=== PATIENT | female | born 1975 | race American Indian/Alaskan Native ===

== ENCOUNTER 2018-08-22 15:15 | Emergency (ER) | payer OTHER, MEDICAID ==
[2018-08-22 15:35] VITALS: BP 149/87
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
== END 2018-08-22 18:11 | disposition home or self-care (01) ==
LOC: ED 15:15
DX: Z04.1 Encounter for examination and observation following transport accident (principal); V89.2XXA Person injured in unspecified motor-vehicle accident, traffic, initial encounter; Y93.89 Activity, other specified; Y92.488 Other paved roadways as the place of occurrence of the external cause; Y99.8 Other external cause status
CPT/HCPCS: 99282

== ENCOUNTER 2019-02-07 09:52 | Day surgery (SDC) | payer MEDICAID, OTHER ==
[~2019-02-07 09:52] MED LIST: NACL 0.9% 1000 ML 1,000 ML IV SCH
[2019-02-07] MEDS ORDERED: DIPRIVAN 10 MG/ML IV ONE (11:01)
--- NOTE | 2019-02-07 11:11 | Anesthesia Consultation ---
Anesthesia Consult and Med Hx Date of service: 02/07/19 - Airway Anesthetic Teeth Evaluation: Good ROM Head & Neck: Adequate Mental/Hyoid Distance: Adequate Mallampati Class: Class II Intubation Access Assessment: Good - Pulmonary Exam CTA: Yes - Cardiac Exam Cardiac Exam: RRR - Pre-Operative Health Status ASA Pre-Surgery Classification: ASA2 Proposed Anesthetic Plan: MAC - Endocrine Hx Non-Insulin Dependent Diabetes: Yes - Additional Comments Anesthesia Medical History Comments: Hx of DM and Mental Retardation , consent obtained from Mother over the phone
--- NOTE | 2019-02-07 11:11 | Anesthesia Day of Surgery ---
Anesthesia Day of Surgery - Day of Surgery Patient Examined: Yes Patient H&P Reviewed: Yes Patient is NPO: Yes
--- NOTE | 2019-02-07 11:25 | Operative Report ---
Operative Report Operative Report: Procedure: Colonoscopy with Hot biopsy polypectomy. Attending physician: De Osborn M.D. Security Tester: De Osborn M.D. Indication: Patient is a 43-year-old female who presents for colorectal cancer screening. This colonoscopy serves to evaluate patient so that treatment may be directed based on the findings. Consent: Informed consent was obtained after advising the patient and family regarding nature of this procedure, its indications, potential benefits as well as possible complications including but not limited to bleeding perforation and adverse reaction to medication, infection as well as other cardiopulmonary complications. An informed written and verbal consent was then obtained after due opportunity was provided for questions and answers. Monitoring: Patient was monitored continuously with pulse oximetry and electrocardiographic recordings as well as blood pressure recordings. Vital signs remained stable throughout this procedure with no untoward events. Preoperative assessment: Patient was assessed immediately prior to this procedure for capacity to tolerate monitored anesthesia care and moderate sedation as well as general anesthesia. Patient's ASA classification is 2, Mallampati class is 2, Hyomental distance is 3. Instrument: Olympus video colonoscope CF-HQ 190L Medications: Propofol given intravenously in divided doses. For details please refer to anesthesia records. Description of procedure: Patient was placed in the left lateral decubitus position after achieving sedation, a digital rectal examination was performed following which the colonoscope was introduced into the anal verge and advanced to the cecum which was identified by the cecal valve, the appendiceal orifice, as well as by the cecal strap and direct transillumination. The colonoscope was subsequently withdrawn with careful inspection of all mucosal surfaces. Patient tolerated this procedure well and was subsequently taken to the recovery room. The following findings were noted. Findings: [place] bowel preparation scale score : 6. : Patient had adequate colonoscopic preparation with no significant residual stool in the right colon and transverse colon and left colon. The overall preparation therefore deemed adequate with a scale score of 6. The withdrawal time from the cecum was greater than 6 minutes. Patient had diverticulosis of mild severity involving the ascending colon, descending colon and sigmoid colon. The cecum was normal. The ascending colon was normal. The transverse colon was normal. The descending colon was normal except for the diverticulosis., In the sigmoid colon, patient had 2 diminutive polyps measuring between 4-5 mm. Both polyps were removed by hot biopsy polypectomy and retrieved. The rest of the colon was normal except for the findings of mild colonic diverticulosis. On a retroflexed view of the anal verge, patient had internal hemorrhoids. Impression: Sigmoid colon polyps status post hot biopsy polypectomy. Diverticular disease of the colon. Internal hemorrhoids. Plan: Follow pathology report. High-fiber diet. Repeat colonoscopy in 5 years if polyps are adenomatous
--- NOTE | 2019-02-07 11:25 | Discharge Summary ---
Short Stay Discharge Plan Weight Bearing Status: Weight Bear as Tolerated Diet: regular Follow up with: SHREYAS MEDRANO MD [Primary Care Provider] - 7 Days
[2019-02-07 11:48] VITALS: BP 97/58
--- NOTE | 2019-02-07 13:16 | Post Anesthesia Evaluation ---
- Post Anesthesia Evaluation Patient Participated: Yes Airway Patent: Yes Stable Respiratory Function: Yes Nausea/Vomiting: No Temp > 96.8F: Yes Pain Manageable: Yes Adequeate Hydration: Yes Anesthesia Complications: No Block Receding Appropriately: Not Applicable Patient on Ventilator: No
== END 2019-02-07 09:53 | disposition home or self-care (01) ==
LOC: GIO 09:52
PROVIDERS: ATTEND Internal Medicine Gastroenterology
DX: Z12.11 Encounter for screening for malignant neoplasm of colon (principal); K63.5 Polyp of colon; K64.8 Other hemorrhoids; K57.30 Diverticulosis of large intestine without perforation or abscess without bleeding; E11.9 Type 2 diabetes mellitus without complications; Z79.899 Other long term (current) drug therapy; Z79.84 Long term (current) use of oral hypoglycemic drugs
CPT/HCPCS: 45384; 81025; 82962; 88305; J2704; J7030